=== PATIENT | female | born 2000 | race Caucasian/White ===

== ENCOUNTER 2024-04-20 23:17 | Emergency (ER) | payer OTHER ==
[~2024-04-20] VITALS: Ht 167.6 cm; Wt 55.0 kg
[2024-04-20 23:47] VITALS: BP 112/82; PULSE 73; RESP 16; TEMP 97.8; O2SAT 99
[2024-04-21 00:05] LABS: CLARITY URINE CLEAR (CLEAR); COLOR URINE YELLOW (YELLOW); GLUCOSE URINE NEGATIVE (NEGATIVE); KETONES URINE NEGATIVE (NEGATIVE); LEUKOCYTE ESTERASE URINE TRACE (NEGATIVE); NITRITE URINE NEGATIVE (NEGATIVE); OCCULT BLOOD URINE 3+ (NEGATIVE); PH URINE 8.5 (4.5-8.0); PROTEIN URINE NEGATIVE (NEGATIVE); SPECIFIC GRAVITY URINE 1.013 (1.005-1.030); UROBILINOGEN URINE 0.2 E.U./dL (0.2-1.0)
[2024-04-21 00:17] LABS: BACTERIA URINE NONE SEEN; RBC URINE 50-100 /hpf (0-2); SQUAMOUS EPITHELIAL CELL URINE 1+ /lpf (RARE/1+); WBC URINE 0-2 /hpf (0-2)
[2024-04-21 00:32] LABS: BASOPHILS % 0.3 % (0.0-2.0); EOSINOPHILS % 0.9 % (0.0-5.0); HEMATOCRIT. 35.5 % (36.0-48.0); LYMPHOCYTES % 13.9 % (20.0-50.0); MEAN CORPUSCULAR HEMOGLOBIN 29.9 pg (28.0-32.0); MEAN CORPUSCULAR HGB CONC 33.7 g/dL (31.0-37.0); MEAN CORPUSCULAR VOLUME 88.5 fL (81.0-99.0); MEAN PLATELET VOLUME 8.5 fl (7.4-10.4); MONOCYTES % 7.7 % (2.0-8.0); NEUTROPHILS % 77.2 % (40.0-76.0); PLATELET 245 x1000/uL (130-400); RED BLOOD CELL COUNT 4.01 mill/uL (4.2-5.4); RED CELL DISTRIBUTION WIDTH 13.2 % (11.6-14.6); WHITE BLOOD COUNT 12.8 x1000/uL (4.5-11.0)
[2024-04-21 00:39] LABS: CHLORIDE 106 mEq/L (98-107); POTASSIUM 4.1 mEq/L (3.5-5.1); SODIUM 138 mEq/L (136-145)
[2024-04-21 00:40] LABS: CALCIUM 8.9 mg/dL (8.7-10.4); CARBON DIOXIDE 24 mEq/L (21-32)
[2024-04-21 00:45] LABS: CREATININE 1.1 mg/dL (0.6-1.0); GLUCOSE 102 mg/dL (70-105)
[2024-04-21 00:46] LABS: UREA NITROGEN BLOOD 10 mg/dL (9-23)
[2024-04-21 00:47] LABS: ALANINE AMINOTRANSFERASE < 7 IU/L (10-49); ALBUMIN 4.3 g/dL (3.2-4.8); ASPARTATE AMINOTRANSFERASE 13 IU/L (<34); BILIRUBIN DIRECT 0.3 mg/dL (<=3.0)
[2024-04-21 00:48] LABS: BILIRUBIN TOTAL 0.8 mg/dL (0.1-1.0); PROTEIN TOTAL 7.2 g/dL (6.0-8.3)
[2024-04-21] MEDS ORDERED: IBUP-2028 MT (05:55)
== END 2024-04-21 07:14 | disposition home or self-care (01) ==
LOC: ER 23:17
DX: R10.2 Pelvic and perineal pain (principal); N93.9 Abnormal uterine and vaginal bleeding, unspecified; R53.83 Other fatigue; R51.9 Headache, unspecified
CPT/HCPCS: 36415; 76830; 76856; 80048; 80076; 81003; 81025; 84702; 85025; 86850; 86900; 99284